=== PATIENT | female | born 1990 | race Caucasian/White ===

== ENCOUNTER 2019-11-07 01:43 | Emergency (ER) | payer OTHER ==
[~2019-11-07] VITALS: Ht 157.5 cm; Wt 56.7 kg
--- OUTSIDE RECORDS SUMMARY | ~2019-11-07 | XMS | Encounter Summary ---
Demographics + + + | Address | [address] | | | [place] [address] | + + + | Home Phone | | + + + | Preferred Language | Unknown | + + + | Marital Status | | + + + | Jewish Affiliation | Unknown | + + + | Race | White | + + + | Ethnic Group | Not or | + + + Author + + + | Organization | Unknown | + + + | Address | Unknown | + + + | Phone | Unavailable | + + + Support + + +---------+ + | Name | Relationship | Address | Phone | + + +---------+ + | Naeem Marrero | ECON | Unknown | | + + +---------+ + Care Team Providers + +------+ + | Care Mattress And Boxsprings Supervisor Name | Role | Phone | + +------+ + | Dorinda Mascorro | PCP | | + +------+ + Encounter Details +--------+--------+ + + + | Date | Type | Department | Care Team | Description | +--------+--------+ + + + | 02/10/ | Travel | | | | | 2019 | | | | | +--------+--------+ + + + Social History + +-------+ +--------+------+ | Tobacco Use | Types | Packs/Day | Years | Date | | | | | Used | | + +-------+ +--------+------+ | Former Smoker | | | | | + +-------+ +--------+------+ + +---+---+---+ | Smokeless Tobacco: | | | | | Never Used | | | | + +---+---+---+ + + +---------+ + | Alcohol Use | Drinks/Week | oz/Week | Comments | + + +---------+ + | Not Currently | | | | + + +---------+ + + + + | Sex Assigned at | Date Recorded | | | | + + + | Not on file | | + + + + + + + | Job Start Date | Occupation | Industry | + + + + | Not on file | Not on file | Not on file | + + + + + + + + | Travel History | Travel Start | Travel End | + + + + + + | No recent travel history available. | + + documented as of this encounter Plan of Treatment Not on filedocumented as of this encounter Visit Diagnoses Not on filedocumented in this encounter"
--- OUTSIDE RECORDS SUMMARY | ~2019-11-07 | XMS | Clinical Summary ---
Demographics + + + | Address | [address] | | | [place] [address] | + + + | Home Phone | | + + + | Preferred Language | Unknown | + + + | Marital Status | | + + + | Caodaism Affiliation | Unknown | + + + | Race | White | + + + | Ethnic Group | Not or | + + + Author + + + | Author | [facility] | + + + | Organization | [facility] | + + + | Address | Unknown | + + + | Phone | Unavailable | + + + Support + + +---------+ + | Name | Relationship | Address | Phone | + + +---------+ + | Naeem Marrero | ECON | Unknown | | + + +---------+ + Care Team Providers + +------+ + | Care Manager Audio Name | Role | Phone | + +------+ + | Dorinda Mascorro | PCP | | + +------+ + Source Comments [facility] is fully live on both [facility] and [facility] Allergies No Known Allergies Medications + + + +---------+------+------+-------+ | Medication | Sig | Dispensed | Refills | Star | End | Statu | | | | | | t | Date | s | | | | | | Date | | | + + + +---------+------+------+-------+ | ibuprofen 800 mg | Take 800 mg by mouth | | 0 | | | Activ | | oral tablet | every six hours as | | | | | e | | | needed. | | | | | | + + + +---------+------+------+-------+ Active Problems + + + | Problem | Noted Date | + + + | RLQ abdominal pain | | + + + | Headache | | + + + | Depression | | + + + | Colorectal cancer | | + + + | Anxiety | | + + + | Chlamydia | | + + + Family History + + +------+ + | Medical History | Relation | Name | Comments | + + +------+ + | Cancer | Maternal | | | | | Grandmoth | | | | | er | | | + + +------+ + | Diabetes | Maternal | | | | | Grandmoth | | | | | er | | | + + +------+ + + +------+--------+ + | Relation | Name | Status | Comments | + +------+--------+ + | Maternal Grandmother | | | | + +------+--------+ + Social History + +-------+ +--------+------+ | [...] recent travel history available. | + + Last Filed Vital Signs + + + + + | Vital Sign | Reading | Time Taken | Comments | + + + + + | Blood Pressure | 116/74 | 02/10/2019 12:59 PM | | | | | PDT | | + + + + + | Pulse | 78 | 02/10/2019 12:59 PM | | | | | PDT | | + + + + + | Temperature | 36.7 C (98.1 F) | 02/10/2019 12:59 PM | | | | | PDT | | + + + + + | Respiratory Rate | - | - | | + + + + + | Oxygen Saturation | 100% | 02/10/2019 12:59 PM | | | | | PDT | | + + + + + | Inhaled Oxygen | - | - | | | Concentration | | | | + + + + + | Weight | 56.7 kg (125 lb) | 02/10/2019 12:59 PM | | | | | PDT | | + + + + + | Height | 158.8 cm (5' 2.5") | 02/10/2019 12:59 PM | | | | | PDT | | + + + + + | Body Mass Index | 22.5 | 02/10/2019 12:59 PM | | | | | PDT | | + + + + + Plan of Treatment + + + + + | Health Maintenance | Due Date | Last Done | Comments | + + + + + | Influenza (Flu) | | 03/01/2016, 03/01/2016, | | | vaccination (#1) | 9 | 05/11/2012, Additional history | | | | | exists | | + + + + + | Pneumococcal | Aged Out | 11/23/2007 | No longer eligible | | vaccination | | | based on patient's | | | | | age to complete this | | | | | topic | + + + + + Results Not on filefrom Last 3 Months Insurance + +--------+ +--------+-------+---------+--------+ | Payer | Benefi | Subscriber | Effect | Phone | Address | Type | | | t Plan | ID | [id number] | | | | | | / | | Dates | | | | | | Group | | | | | | + +--------+ +--------+-------+---------+--------+ | PERSONNEL ANALYST MEDICAID | PERSONNEL ANALYST | xxxxxxxx | | | | Medica | | | [place] | | [id number] | | | id | | | [place] | | esent | | | | + +--------+ +--------+-------+---------+--------+ + +--------+ +--------+ + + | Guarantor Name | Accoun | Relation to | Date | Phone | Billing Address | | | t Type | Patient | of | | | | | | | | | | + +--------+ +--------+ + + | Renetta Gaxiola | Person | Self [birth year] | [address] | | | al/Fam | | 1991 | [phone] | [place] [address] | | | nohemy | | | 2 (Home) | | + +--------+ +--------+ + +
--- OUTSIDE RECORDS SUMMARY | ~2019-11-07 | XMS | Encounter Summary ---
Demographics + + + | Address | [address] | | | [place] [address] | + + + | Home Phone | | + + + | Preferred Language | Unknown | + + + | Marital Status | | + + + | Scientologist Affiliation | Unknown | + + + | Race | White | + + + | Ethnic Group | Not or | + + + Author + + + | Author | [facility] | + + + | Organization | [facility] | + + + | Address | Unknown | + + + | Phone | Unavailable | + + + Support + + +---------+ + | Name | Relationship | Address | Phone | + + +---------+ + | Naeem Marrero | ECON | Unknown | | + + +---------+ + Care Team Providers + +------+ + | Care Veneer Joiner Name | Role | Phone | + +------+ + | SubhaDorinda BRITTON | PCP | | + +------+ + Reason for Visit + + + | Reason | Comments | + + + | Abdominal pain | | + + + | Pelvic Pain | | + + + Intake Referral (Routine) +--------+---------+ + + + + | Status | Reason | Specialty | Diagnoses / | Referred By | Referred To | | | | | Procedures | Contact | Contact | +--------+---------+ + + + + | Closed | Other | Pain Medicine | Diagnoses | Dhara, | Car 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 Chh1 | | | | / Pain | Neuralgia | Grazyna Gonsalez, | [address] | | | | Management | and | RONY [place] | e [address] | | | | | neuritis, | Pain | for Health | | | | | unspecified | Management | and Healing, | | | | | | [address] | Building | | | | | | [place] | 1[address] | | | | | | [place], [place] | [place], [place] | | | | | | [address] | [address] | | | | | | Phone: | Phone: | | | | | | [phone] | [phone] | | | | | | Fax: | Fax: | | | | | | [phone] | [phone] | +--------+---------+ + + + + Encounter Details +--------+---------+ + + + | Date | Type | Department | Care Team | Description | +--------+---------+ + + + | 02/10/ | Office | [facility] [place] | Sukhjinder, | Chronic pain | | 2019 | Visit | Pain Center at | MD Yumi [address] | syndrome (Primary | | | | [address] [place] [address] [place], | Dx) | | | | [address] | [place] [address] | | | | | [facility] | [phone] | | | | | and Healing, | | | | | | Building ,[address] | | | | | | Floor [place], [place] | | | | | | [address] | | | | | | [phone] | | | +--------+---------+ + + + Social History + +-------+ [...] + + documented as of this encounter Last Filed Vital Signs + + + [...] | | + + + + + documented in this encounter Patient Instructions Patient Instructions Nisha Chowdary - 02/10/2019 12:40 PM PDTRenetta, It was good to meet you. Thank you for taking the time to see us in the [facility] today. We look forward to working with you in the future. As a reminder, this clini c generally does not prescribe or dispense medications. We will send a copy of our notes, i ncluding detailed recommendations, to your primary care provider (PCP). Any prescriptions w ill need to come from that provider. Please contact their office within the next few days to make an appointment to get started with our recommendations. Below is a short summary of w hat we discussed today for your reference. - The [facility] has many complementary treatment modalities to explore incl uding: pain psychology, naturopathic medicine, physical therapy, chiropractic, nutrition/ t counseling, acupuncture, massage (rolfing), and aqua therapy. We hope that these treatment s will provide good holistic care to help you further manage your pain. If you are interested in exploring any of these therapy options in the future, please call our main clinic number at [phone] to request a referral to schedule. - The bump felt on your exam today is likely the inguinal ligament. documented in this encounter Progress Notes Yumi Slaughter MD - 02/10/2019 12:40 PM PDTI saw and evaluated the patient with Kit Barton, who conducted the history. I reviewed the history in detail. I was present for the examination and formulation portions of the encounter. I agree with the fin dings and the plan of care as documented in this note, and I edited the trainee's note. Yumi Slaughter MD [facility] AT [address] & [facility], 4th Floor Mail Code: CH4P [place], [place] [address] Cecilia Glynn MD - 02/10/2019 12:40 PM PDTFormatting of this note might be different fr om the original. Date: 02/10/2019 was referred for pain management consultation by RONY Ames [facility] [address] [place] [address] Reason for consult: Per RONY Lynn's ([facility]) clinic note from 10/08/2018: Chief Complaint Patient presents with Abdominal pain Pelvic Pain History of Present Illness: Renetta Gaxiola is a very pleasant 28 year old female who presen ts as a referral from THOMPSON Sumners for evaluation and treatment of pelvic pain and possible consideration for cryoablation or SCS/DRG. Ms. Gaxiola reports right pelvic pain that started in June 2016 following surgery for choles tasis of . Per the patient, 21 days after her cholecystectomy, had intense right lo wer pelvic pain which resulted in her going to the ED. She had a CT abdomen which showed a r etained foreign body. She was taken to the OR for an exploratory laparotomy for removal of f oreign body, however nothing was found. She continued to have pain hence another CT scan was obtained with showed foreign body. She was then taken to the OR a second time and this time part of her drain placed after her cholecystomy was retrieved. Unfortunately, her pain never resolved and has seen about eight doctors for this pain inclu ding two pain specialists, primary care physician, general surgery and OBGYN. It was believe d that her ovaries/uterus might have been causing her problems and counseled to get a hyster ectomy and salpingectomy. Her initial pain specialist did a nerve block around her right ing uinal area using patient reported "upstream approach" which did not help. Her now current p ain specialist has done two ilioinguinal blocks. The first block was not successful but the second block helped tremendously and has had pain relief for 6 weeks now (80% reduction in p ain). She was at one point seeing her pain specialist every 2 weeks for over a month and a h gigi. She was sent here to see if we could do an ablation or have other options for pain redu ction. Her pain is described as intermittent, sharp and pressure like. It is localized to right lo wer quadrant below the ilioinguinal ligament. Associated symptoms include no numbness/tingli ng, no weakness, no ataxia, no incontinence to bowel/bladder, no saddle anesthesia. Her pain is exacerbated by bending backward, bending forward, climbing stairs, cold, cough/sneeze, d riving, exercise, heat, lifting, light touch, looking down, looking up, lying down, sexual a ctivity, sitting, standing, walking and work. Her pain is alleviated by heat and medications . There Is no clear pattern to pain as it can be incited from various activities, and can l ast seconds to hours. Her current pain intensity over the past week is 2/10 at worst, 0/10 a t best and 1 /10 on average. Presently a 1/10. She manages pain with ibuprofen 800 mg, but h as not needed any since her injection 6 weeks ago. 's treatment for this pain complaint has included: MEDICATIONS: - Ibuprofen 800 mg - Gabapentin: not helpful NON-MEDICATION THERAPIES: - Heating pad- helped - Physical therapy: yes- didn't help - Exercise - Passive (heat, ice, gentle massage) - Chiropractic INTERVENTIONS: - Right ilioinguinal nerve block (6 weeks ago) with 80% pain relief - Right ilioinguinal nerve block by Dr. Jessica at [facility] (09/22/2018) with 0% pain improvement - Surgical removal of drain tube fragment (07/01/2016) - Laparoscopic exploratory surgery with attempt to remove fragment, unsuccessful - Cholecystectomy (06/12/2016) complicated by drain tube fragment left in abdominal cavity She feels that the most effective treatments include: injection. lives in a single family home with her spouse. 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 's recreational activities include: camping, playing with children and socializing with friends/family. As a result of her pain, notes multiple changes in her life, i ncluding before couldn't do anything but now better. 's goals from today's appointment include: a diagnosis and eliminate pain. [facility] Brief Pain Inventory: (ten= worst possible pain or complete interference) I reviewed the patient questionnaire for this appointment. Past Medical History: Diagnosis Date Abnormal cervical Papanicolaou smear Anxiety Chickenpox Chlamydia Colorectal cancer (HCC) Depression Headache Kidney disease Painful menstruation depression RLQ abdominal pain Past Surgical History Procedure Laterality Date Tonsillectomy Laparoscopic appendectomy Cholecystectomy Leep conization Dilation and curettage of uterus Laparoscopy Family History Problem Relation Diabetes Maternal Grandmother Cancer Maternal Grandmother Social History Substance and Sexual Activity Alcohol Use Not Currently Social History Substance and Sexual Activity Drug Use Not on file Social History Patient does not qualify to have social determinant information on file (likely too young). Social History Narrative Not on file No Known Allergies Current Medication List Name Sig IBUPROFEN 800 MG TABLET Take 800 mg by mouth every six hours as needed. Radiology/Diagnostic Tests: CT ABDOMEN/PELVIS W CONTRAST dated 07/06/2018 9:40 AM ([employer] [facility] Everywhere) CLINICAL HISTORY: Pelvic and perianal pain. COMPARISON: Abdominal ultrasound 05/25/2018, pelvic ultrasound 05/18/2018, CT abdomen and pelvis 03/31/2017 PROCEDURE COMMENTS: CT of the abdomen and pelvis was performed following administration of IV contrast. This examination was performed with automated exposure control to minimize patien t radiation exposure. FINDINGS: Lower thorax: Normal. Liver and biliary tree: Normal. Gallbladder: Surgically absent. Spleen: Normal. Pancreas: Normal. Adrenal glands: Normal. Kidneys and ureters: No hydroureteronephrosis or nephroureterolithiasis. Gastrointestinal tract: There is oral contrast throughout the stomach, small bowel, and col on. No dilated small bowel loops. No acute pericolonic inflammatory change. There is a moderate to large amount of stool throughout the colon. The appendix is not definitely identified, lamas billy there are no dilated, blind-ending tubular structures or right lower quadrant inflammatory change to suggest secondary signs of acute appendicitis. Peritoneal cavity: No free fluid. Bladder: Normal. Pelvic organs: There is a T-shaped intrauterine device at the uterine fundus which appears obliquely positioned. The right arm approaches the serosal surface without visible perforat ion repair coronal image 30 and sagittal image 40). A left adnexal cystic lesion is 3.4 x 2.8 x 2.4 cm Vasculature: No abdominal aortic aneurysm. Prominent bilateral periuterine vasculature and prominent bilateral gonadal veins. Lymph nodes: No enlarged retroperitoneal or mesenteric lymph nodes. Musculoskeletal: No acute bony abnormalities. IMPRESSION: 1. A T-shaped intrauterine device near the fundus appears obliquely positioned. The right arm appears close to the serosal surface, somewhat eccentric appearing within the endometrial canal. 2. Prominent bilateral periuterine and gonadal veins are nonspecific, but can be seen in the setting of pelvic congestion syndrome, which is a clinical diagnosis. 3. Left ovarian cyst measures approximately 2.8 x 3.4 cm, stable since 05/18/2018 when allowing for differences in imaging modality. 4. Moderate to large colonic stool burden. Correlate for constipation. No acute colitis or small bowel obstruction. X-RAY PELVIS 1 OR 2 VIEWS 05/25/2018 ([employer] [facility] Everywhere) REASON FOR EXAM: Female, 27 years old, with history of right sided pelvic bone pain. TECHNIQUE: 2 AP views of the pelvis are provided. COMPARISON: None. FINDINGS: Normal bone mineralization is seen. There is no acute fracture identified. Note d is a faintly sclerotic lesion within the right femoral head, consistent with a bone island as seen on CT from 03/31/2017. No other focal osseous lesion seen. Noted is an intrauterine device . IMPRESSION: Unremarkable pelvic radiographs. Most Recent Labs: Not Applicable Review of Systems Constitutional: Positive for malaise/fatigue and weight loss. Negative for chills and fever . HENT: Negative for tinnitus. Respiratory: Negative for cough. Cardiovascular: Negative for chest pain and palpitations. Gastrointestinal: Positive for nausea. Negative for heartburn and vomiting. Genitourinary: Negative for dysuria, frequency and urgency. Musculoskeletal: Positive for back pain. Negative for joint pain, myalgias and neck pain. Skin: Negative for rash. Neurological: Negative for dizziness, sensory change, focal weakness, seizures and headache s. Psychiatric/Behavioral: Positive for depression. Negative for suicidal ideas. BP 116/74 (BP Location: Left upper arm, Patient Position: Sitting) | Pulse 78 | Temp 36.7 C (98.1 F) | Ht 1.588 m (5' 2.5") | Wt 56.7 kg (125 lb) | SpO2 100% | BMI 22.50 kg/ m | BSA 1.58 m Physical Exam Vitals signs reviewed. Constitutional: General: She is not in acute distress. Appearance: She is not diaphoretic. HENT: Head: Normocephalic and atraumatic. Right Ear: External ear normal. Left Ear: External ear normal. Eyes: Conjunctiva/sclera: Conjunctivae normal. Cardiovascular: Rate and Rhythm: Normal rate. Pulmonary: Effort: Pulmonary effort is normal. Abdominal: General: Bowel sounds are normal. There is no distension. Tenderness: There is no rebound. Comments: Tenderness to palpation over the right lateral pubis No reproducible pain with abdominal crunch Active bowels sounds, no rebound or guarding Skin: General: Skin is warm and dry. Findings: No erythema. Neurological: Mental Status: She is alert and oriented to person, place, and time. Comments: No allodynia over all four quadrants of the abdomen Psychiatric: Mood and Affect: Mood normal. Behavior: Behavior normal. Thought Content: Thought content normal. Judgment: Judgment normal. Neurologic Exam Mental Status Oriented to person, place, and time. Ortho Exam Patient Active Problem List Diagnosis RLQ abdominal pain Headache Depression Colorectal cancer (HCC) Anxiety Chlamydia Visit Diagnoses: G89.4 Chronic pain syndrome For today's evaluation, I have included my personal review of Ms. Gaxiola's history and physi emerita examination. I also used the following components in my medical decision making: Radiology Reports reviewed. Review and summary of old medical records (source: [facility] and [facility] Everywhere), as summarized in the body of the note. Impression: Ms. Gaxiola is a 28 y.o. female with a history of anxiety who presents today on referral by Grazyna Gil PA for evaluation of chronic pelvic pain. Ms. Gaxiola describes her pain as sharp and constant in her right groin just lateral to her pubis. She has been seen by multi ple specialists in the past including Ob-Special Effects Technician, General Surgery and Pain Management who have n ot been able to diagnose the etiology of her pain, per patient. She was managing her pain wi th Ibuprofen PRN and recently underwent a right ilioinguinal nerve block by Dr. Heard at [facility]. The patient notes that the first nerve block provided 0% relief but t more recently nerve block provided 80% pain relief that is ongoing. She was referred to [facility] by Dr. Heard to discuss other interventional pain management [facility]. On physical examination, Ms. Gaxiola exhibited tenderness to palpation over the medial aspect of her right inguinal ligament. There was no obvious evidence of scaring, inflammation, inj ury, allodynia, or radicular pain. MRI Imaging from 06/2018 shows evidence of prominent bila teral periuterine and gonadal veins which are nonspecific, but could be seen in the setting of pelvic congestion syndrome, left ovarian cyst measuring approximately 2.8 x 3.4 cm, stabl e since 05/18/2018, and moderate to large colonic stool burden. Given the presentation of Ms. Gaxiola's pain on physical exam and history, we discussed that the etiology of her pain continues to be unclear. The differential diagnosis includes myofas cial pain, pelvic congestion syndrome, ilioinguinal neuralgia and chronic pain syndrome. She currently reports 80% pain relief from her ilioinguinal nerve block for over 6 weeks now. I nterestingly, the first ilioinguinal nerve block provided 0% pain relief. As her surgery was a laparoscopic cholecystectomy, it is unclear to me why this surgery would cause ilioinguin al neuralgia; and further more if her pain is related to pelvic congestion syndrome, it is u nclear to me why a ilioinguinal nerve block would be helpful for this. Given that the etiolo gy of her pain is unclear, I would not recommend cryoablation, spinal cord stimulation or do rsal root ganglion stimulation at this time. If the patient would like to pursue these inter ventions, I recommend that she follow up with Dr. Heard. We reviewed other modalities of pain management offered here at the [facility] er including acupuncture, massage, chiropractic, physical therapy, rolfing, nutrition counse ling and pain psychology. After our discussion today Ms. Renetta Gaxiola is most interested i n following up with her present pain physicians should her pain return. Recommendation/Plan: - Consider complementary treatment modalities as discussed above. - Follow up as needed. This list of resources may be useful in the care of Ms. Gaxiola: Pain Medicine Resources: Other Pain Management Resources: Living Well With Chronic Condit ions Classes: [email or web address] I, Nisha Chowdary, am functioning as a scribe for Cecilia Barton MD at 1:50 PM on . I have reviewed and verified the above scribed note of my visit with this patient as record ed by Nisha Chowdary. Cecilia Barton MD [facility] AT [address] Mailcode: Ch15p [place] [id number] [phone] signed by Yumi Slaughter MD at 02/14/2019 6:12 PM PSTAlejandra Collado MA - 02/10/2019 12:40 PM PDTIn the last 2 years have you had an MRI, PET, CT, Xr ay imaging: yes What imaging was done? MRI Where? [facility] When? Within the last 6 months 3 :51 PM PDTdocumented in this encounter Plan of Treatment Not on filedocumented as of this encounter Visit Diagnoses + + | Diagnosis | + + | Chronic pain syndrome - Primary | + + documented in this encounter
--- OUTSIDE RECORDS SUMMARY | ~2019-11-07 | XMS | Encounter Summary ---
Demographics + + + | Address | [address] | | | [place] [address] | + + + | Home Phone | | + + + | Preferred Language | Unknown | + + + | Marital Status | | + + + | Anabaptism Affiliation | Unknown | + + + | Race | White | + + + | Ethnic Group | Not or | + + + Author + + + | Author | [facility] | + + + | Organization | [facility] | + + + | Address | Unknown | + + + | Phone | Unavailable | + + + Support + + +---------+ + | Name | Relationship | Address | Phone | + + +---------+ + | Naeem Marrero | ECON | Unknown | | + + +---------+ + Care Team Providers + +------+ + | Care Senior Billing Consultant Name | Role | Phone | + [...] Pain Medicine | Diagnoses | Dhara, | Inserter Chh1 | | | | / Pain | Neuralgia | Grazyna Gonsalez, | [address] | | | | Management | and | RON[place] | e [place] | | | | | neuritis, | Pain | for Health | | | | | unspecified | Management | and Healing, | | | | | | [address] | Building | | | | | | [place] | [address] | | | | | | [place], [place] | [place], [place] | | | | | | [address] | [address] | | | | | | Phone: | Phone: | | | | | | [phone] | [phone] | | | | | | Fax: | Fax: | | | | | | [phone] | [phone] | +--------+---------+ + + + + Encounter Details +--------+---------+ + + + | Date | Type | Department | Care Team | Description | +--------+---------+ + + + | 02/10/ | Office | [facility] | Sukhjinder, | Chronic pain | | 2019 | Visit | Pain Center at | MD Yumi [address] | syndrome (Primary | | | | [place] | [address] [place], | Dx) | | | | [address] | [place] [address] | | | | | [facility] | [phone] | | | | | and Healing, | | | | | | Building ,[address] | | | | | | Floor [place], [place] | | | | | | [address] | | | | | | [phone] | | | +--------+---------+ + + + [...] the time to see us in the [facility] today. We look forward to [...] discussed today for your reference. - The [facility] has many complementary treatment modalities [...] please call our main clinic number at [phone] to request a referral to schedule. - [...] edited the trainee's note. Yumi Slaughter MD [facility] AT [address] & [facility], 4th Floor Mail Code: CH4P [place], [place] [address] Cecilia Glynn MD - 02/10/2019 12:40 PM PDTFormatting of this note might be different fr om the original. Date: 02/10/2019 was referred for pain management consultation by RONY Ames [facility] [address] [place] [address] Reason for consult: Per RONY Lynn's ([facility]) clinic note from 10/08/2018: Chief [...] ilioinguinal nerve block by Dr. Jessica at [facility] (09/22/2018) with 0% pain improvement - Surgical removal of drain tube fragment (07/01/2016) - Laparoscopic exploratory surgery with attempt to remove fragment, unsuccessful - Cholecystectomy (06/12/2016) complicated by drain tube fragment left in abdominal cavity She feels that the most effective treatments include: injection. lives in a single family home with her spouse. 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 's recreational activities include: camping, playing with children and socializing with friends/family. As a result of her pain, notes multiple changes in her life, i ncluding before couldn't do anything but now better. 's goals from today's appointment include: a diagnosis and eliminate pain. [facility] Brief Pain Inventory: (ten= worst possible pain [...] ABDOMEN/PELVIS W CONTRAST dated 07/06/2018 9:40 AM ([facility] Everywhere) CLINICAL HISTORY: Pelvic and perianal [...] X-RAY PELVIS 1 OR 2 VIEWS 05/25/2018 ([facility] Everywhere) REASON FOR EXAM: Female, 27 [...] and summary of old medical records (source: [facility] and [facility] Everywhere), as summarized in the body of [...] multi ple specialists in the past including Ob-Trailer Rental Clerk, General Surgery and Pain Management who have n ot been able to diagnose the etiology of her pain, per patient. She was managing her pain wi th Ibuprofen PRN and recently underwent a right ilioinguinal nerve block by Dr. Heard at [facility]. The patient notes that the first nerve block provided 0% relief but t more recently nerve block provided 80% pain relief that is ongoing. She was referred to [facility] by Dr. Heard to discuss other interventional pain management [facility]. On physical examination, Ms. Gaxiola [...] management offered here at the [facility] er including acupuncture, massage, chiropractic, [...] ed by Nisha Chowdary. Cecilia Barton MD [facility] AT [address] Mailcode: [address] [place] [id number] [phone] signed by Yumi Slaughter MD at 02/14/2019 [...]
--- OUTSIDE RECORDS SUMMARY | ~2019-11-07 | XMS | Clinical Summary ---
Demographics + + + | Address | [address] | | | [place] [address] | + + + | Home Phone [...] Team Providers + +------+ + | Care District Sales Manager Name | Role | Phone | + +------+ + | Dorinda Mascorro | PCP | | + +------+ + Source Comments [facility] is fully live on both [facility] and [facility] Allergies No Known Allergies Medications + + [...] | | | + +--------+ +--------+-------+---------+--------+ | [employer] MEDICAID | [employer]IC | xxxxxxxx | | | | Medica [...] Person | Self | [birth year] | [address] | | | al/Fam | | 1991 | [phone] | [place] [address] | | | nohemy | | | 2 (Home) | | + +--------+ +--------+ + +
--- OUTSIDE RECORDS SUMMARY | ~2019-11-07 | XMS | Encounter Summary ---
Demographics + + + | Address | [address] | | | [place] [address] | + + + | Home Phone | | + + + | Preferred Language | Unknown | + + + | Marital Status | | + + + | Bahai Affiliation | Unknown | + + + [...] Team Providers + +------+ + | Care Retail Reset Merchandiser Name | Role | Phone | + [...]
[2019-11-07] MEDS ORDERED: NORCO 5-325 TA1 EACH PO (02:31)
== END 2019-11-07 02:40 | disposition home or self-care (01) ==
LOC: ED 01:43
DX: S90.111A Contusion of right great toe without damage to nail, initial encounter (principal); Z87.891 Personal history of nicotine dependence; W22.8XXA Striking against or struck by other objects, initial encounter
CPT/HCPCS: 73660; 99283-25

== ENCOUNTER 2020-12-10 18:02 | Emergency (ER) | payer OTHER ==
[~2020-12-10] VITALS: Ht 157.5 cm; Wt 63.5 kg
[~2020-12-10 18:02] MED LIST: NORCO 5-325 TA1 EACH PO
--- NOTE | 2020-12-10 21:57 | EKG ---
[facility] [address] [place] [address] Signed Normal sinus rhythm with sinus arrhythmia Normal ECG No previous ECGs available Confirmed by WILBERTO AYERS MD ([id number]) on 12/10/2020 9:57:34 PM Electronically Signed By: WILBERTO AYERS MD 12/10/20 215 PATIENT NAME: LARA PINO Electrocardiogram DATE OF : 89 PHYSICIAN: WILBERTO AYERS MD REPORT #: [id number] REPORT IS CONFIDENTIAL AND NOT TO BE RELEASED WITHOUT AUTHORIZATION
== END 2020-12-10 21:17 | disposition home or self-care (01) ==
LOC: ED 18:02
DX: U07.1 COVID-19 (principal); Z87.891 Personal history of nicotine dependence
CPT/HCPCS: 71045; 80053; 83735; 84484; 85025; 93005; 93010; 96374; 99285-25; C9803; J1885; U0003